=== PATIENT | female | born 1995 | race Caucasian/White ===

== ENCOUNTER 2020-05-28 19:11 | Emergency (ER) | payer OTHER ==
[~2020-05-28] VITALS: Ht 165.1 cm; Wt 85.9 kg
[2020-05-28 19:19] VITALS: BP 154/99
--- NOTE | 2020-05-28 19:37 | NUR ---
NIL X1
--- NOTE | 2020-05-28 20:10 | NUR ---
PT TO ROOM AT THIS TIME
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
[2020-05-28] MEDS ORDERED: IBUPROFEN 600 MG TABLET PO ONE (21:00)
[2020-05-28] MEDS ORDERED: DIPHENHYDRAMINE 25 MG CAPSULE PO ONE (21:00)
[2020-05-28] MEDS ORDERED: IBUPROFEN 600 MG TABLET ONE (21:03)
[2020-05-28] MEDS ORDERED: PROCHLORPERAZINE 10MG TABLET ONE (21:03)
[2020-05-28] MEDS ORDERED: DIPHENHYDRAMINE 25 MG CAPSULE ONE (21:03)
[2020-05-28] MEDS: PROCHLORPERAZINE 5 MG TABLET PO ONE ×2 (21:05→21:22)
--- NOTE | 2020-05-28 21:23 | NUR ---
PT HAS BEEN TO AND FROM IMAGING. SHE IS SITTING IN BED, POSITIONED TO COMFORT. NO SIGNS OF ACUTE DISTRESS, BELONGINGS IN REACH, ALL NEEDS MET AT THIS TIME. BEDRAILS UP X2.
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
--- NOTE | 2020-05-28 22:32 | NUR ---
PT DRESSED SELF PRIOR TO D/C, NO SIGNS OF ACUTE DISTRESS.
== END 2020-05-28 22:33 | disposition home or self-care (01) ==
LOC: ED 22:12
DX: S06.0X0A Concussion without loss of consciousness, initial encounter (principal); R51 Headache; R55 Syncope and collapse; F17.210 Nicotine dependence, cigarettes, uncomplicated; Y08.89XA Assault by other specified means, initial encounter; Y93.89 Activity, other specified; Y92.009 Unspecified place in unspecified non-institutional (private) residence as the place of occurrence of the external cause; Y99.8 Other external cause status
CPT/HCPCS: 70450; 99284; 99406; Q0163; Q0164